=== PATIENT | female | born 1990 | race Caucasian/White ===

== ENCOUNTER 2017-05-24 09:56 | Emergency (ER) | payer OTHER ==
[~2017-05-24] VITALS: Ht 165.1 cm; Wt 104.1 kg
[~2017-05-24 09:56] MED LIST: HYDR-3498 PO; NAPR-260 PO; TIZA2CAP6 PO
[2017-05-24 09:58] VITALS: Ht 165.1 cm; Wt 104.1 kg
[2017-05-24] MEDS ORDERED: ACETAMINOPHEN 325 MG TAB PO ONE (11:00)
[2017-05-24 11:16] LABS: ADD UMIC NO; UR ASCORBIC ACID NEGATIVE (NEGATIVE); UR BACTERIA FEW /HPF (NONE SEEN); UR BILIRUBIN (Dip) NEGATIVE (NEGATIVE); UR BLOOD (Dip) NEGATIVE (NEGATIVE); UR CLARITY SLIGHTLY CLOUDY (CLEAR); UR COLOR YELLOW (YELLOW); UR GLUCOSE (Dip) NEGATIVE (NEGATIVE); UR KETONES (Dip) NEGATIVE (NEGATIVE); UR LEUKOCYTE ESTERASE (Dip) NEGATIVE Leu/ul (NEGATIVE); UR NITRITE (Dip) NEGATIVE (NEGATIVE); UR RBC 1 /HPF (0-5); UR SQUAMOUS EPITHELIAL CELL FEW /HPF (FEW); UR TOTAL PROTEIN (Dip) NEGATIVE (NEGATIVE); UR UROBILINOGEN (Dip) NEGATIVE (NEGATIVE)
[2017-05-24 11:18] LABS: BASOPHILS % 0.5 % (0.0-2.0); EOSINOPHILS # 0.1 10^3/ul (0.0-0.5); EOSINOPHILS % 0.9 % (0.0-7.0); HEMATOCRIT 44.7 % (37.0-47.0); HEMOGLOBIN 14.6 g/dl (12.0-16.0); LYMPHOCYTES # 2.5 10^3/ul (0.8-2.9); LYMPHOCYTES % 30.6 % (15.0-51.0); MEAN CORPUSCULAR HEMOGLOBIN 28.3 pg (29.0-33.0); MEAN CORPUSCULAR HGB CONC 32.7 g/dl (32.0-37.0); MEAN CORPUSCULAR VOLUME 86.8 fl (82.0-101.0); MEAN PLATELET VOLUME 11.7 fl (7.4-10.4); MONOCYTE # 0.4 10^3/ul (0.3-0.9); MONOCYTES % 4.4 % (0.0-11.0); NEUTROPHIL # 5.2 10^3/ul (1.6-7.5); NEUTROPHILS % 63.4 % (39.0-77.0); PLATELET COUNT 296 10^3/UL (140-415); RED BLOOD COUNT 5.15 10^6/ul (4.20-5.40); RED CELL DISTRIBUTION WIDTH 13.2 % (11.5-14.5); WHITE BLOOD COUNT 8.2 10^3/ul (4.8-10.8)
[2017-05-24 11:36] LABS: ALBUMIN 4.3 g/dl (3.3-4.9); ALBUMIN/GLOBULIN RATIO 1.22; BILIRUBIN,INDIRECT 0.3 mg/dl (0-1.1); BILIRUBIN,TOTAL 0.3 mg/dl (0.2-1.3); CALCIUM 9.5 mg/dl (8.4-10.2); CREATININE 0.73 mg/dl (0.44-1.00); POTASSIUM 4.1 mmol/L (3.5-5.1); TOTAL PROTEIN 7.8 g/dl (6.1-8.1)
--- NOTE | 2017-05-24 12:06 | RADRPT ---
PROCEDURE: Pelvic ultrasound. CLINICAL INDICATION: Pelvic pain TECHNIQUE: Calderon scale, color doppler, spectral doppler ultrasound of the pelvis was performed with transabdominal and transvaginal transducers. COMPARISON: US PELVIS 02/05/2014 FINDINGS: Uterus: Position: Anteverted. Normal myometrial echogenicity. Normal appearance of the endometrium. Ovaries: Normal appearing right ovary. Normal appearing left ovary. No adnexal masses. Blood flows present bilaterally. A few normal appearing sub-centimeter follicles are seen in each ovary. Free fluid: Trace amount. Measurements: Endometrium (cm): 0.8 Uterus (cm): 6.8 x 3.4 x 4.3 Right ovary (cm): 3.2 x 1.7 x 2.3 Left ovary (cm): 3.7 x 2.3 x 2.3 IMPRESSION: Trace amount of free fluid in the pelvis, otherwise normal examination. Resolution of previously seen hemorrhagic cyst. RPTAT: AADD .Kip Jerry MD, MD Date Time Electronically viewed and signed by .Kip Jerry MD, on 05/24/2017 12:06 .B/
[2017-05-24] MEDS ORDERED: IBUP800T25 PO (13:23)
--- NOTE | 2017-05-24 14:55 | ERD ---
ER Documentation Chief Complaint Chief Complaint rt side lower back pain radiating to rt leg , vaginal discharge HPI 26-year-old female complaining of right groin pain on and off for 3 days. The pain has become constant since last night. He is good for pain as pressure and cramping like. Pain is worse when she is sitting, better when she lays down. Patient states that her LMP was 04/11/2017, she has a clear vaginal discharge. She had urine test done at clinic yesterday, was negative. Denies dysuria. Denies fever or chills. Denies injury. Patient has bowel movement regularly daily, last BM was this morning, which was normal. ROS All systems reviewed and are negative except as per history of present illness. Medications Home Meds Active Scripts Ibuprofen* (Motrin*) 800 Mg Tab, 800 MG PO Q6H Y for PAIN AND OR ELEVATED TEMP, #30 TAB Prov:CAIO BENSON MEDICAL INVESTIGATOR 05/24/17 Naproxen* (Naprosyn*) 500 Mg Tablet, 500 MG PO BID Y for PAIN AND/OR INFLAMMATION, #30 TAB Prov:GUILLAUME PORTILLO PA-C 09/10/15 Tizanidine Hcl* (Tizanidine Hcl*) 2 Mg Capsule, 2 MG PO Q6H Y for spasm, #20 CAP Prov:GUILLAUME PORTILLO PA-C 09/10/15 Hydrocodone Bit-Acetaminophen* ([place]*) 5-325 Mg Tab, 1 TAB PO Q6 Y for PAIN, # 12 TAB Prov:GUILLAUME PORTILLO PA-C 09/10/15 Allergies Allergies: Coded Allergies: No Known Allergy (Unverified , 02/05/14) PMhx/Soc History of Surgery: Yes (TONSILLECTOMY) Hx Neurological Disorder: Yes (MIGRAINE HEADACHES) Hx Respiratory Disorders: Yes (ASTHMA) Hx Cardiac Disorders: No Hx Psychiatric Problems: No Hx Miscellaneous Medical Probl: No Hx Alcohol Use: Yes (SOCIAL) Hx Substance Use: No Hx Tobacco Use: No Physical Exam Vitals Vital Signs Date Time Temp Pulse Resp B/P Pulse Ox O2 Delivery O2 Flow Rate FiO2 05/24/17 09:58 99.4 68 18 125/71 100 Physical Exam General: Well-developed, well-nourished, conscious and coherent, in no distress Skin: Warm and dry without rash, good texture and turgor Head: Normocephalic without evidence of trauma Eyes: Sclera and conjunctivae normal; pupils equal, round, and reactive to light; extraocular movements are intact Chest: Normal AP diameter. Good expansion without retractions. Nontender. Lungs are clear to auscultate bilaterally with good tidal volume Heart: Regular rate and rhythm. No murmur, rub, or gallops heard Abdomen: Soft and nontender without masses, guarding, or rebound. Bowel sounds are active. No hepatosplenomegaly Back: Without spinal or CVA tenderness Pelvis: Nontender to palpation and stable to compression. Right groin tender to palpation over the pubic symphysis on the right, no masses, no inguinal nodes. Extremities: Full range of motion. Good strength bilaterally. No clubbing, cyanosis, or edema. Peripheral pulses are intact. Sensation intact Neuro: Alert and oriented 4, GCS 15. Cranial nerves grossly intact. Motor and sensory exams nonfocal. Moves all extremities. Speech clear. Gait normal Result Diagram: 05/24/17 1052 05/24/17 1052 Results 24 hrs Laboratory Tests Test 05/24/17 10:52 White Blood Count 8.210^3/ul Red Blood Count 5.1510^6/ul Hemoglobin 14.6g/dl Hematocrit 44.7% Mean Corpuscular Volume 86.8fl Mean Corpuscular Hemoglobin 28.3pg Mean Corpuscular Hemoglobin Concent 32.7g/dl Red Cell Distribution Width 13.2% Platelet Count 33064^3/UL Mean Platelet Volume 11.7fl Neutrophils % 63.4% Lymphocytes % 30.6% Monocytes % 4.4% Eosinophils % 0.9% Basophils % 0.5% Nucleated Red Blood Cells % 0.0/100WBC Neutrophils # 5.210^3/ul Lymphocytes # 2.510^3/ul Monocytes # 0.410^3/ul Eosinophils # 0.110^3/ul Basophils # 0.010^3/ul Nucleated Red Blood Cells # 0.010^3/ul Urine Color YELLOW Urine Clarity SLIGHTLY CLOUDY Urine pH 6.0 Urine Specific [place] 1.020 Urine Ketones NEGATIVEmg/dL Urine Nitrite NEGATIVEmg/dL Urine Bilirubin NEGATIVEmg/dL Urine Urobilinogen NEGATIVEmg/dL Urine Leukocyte Esterase NEGATIVELeu/ul Urine Microscopic RBC 1/HPF Urine Microscopic WBC 1/HPF Urine Squamous Epithelial Cells FEW/HPF Urine Bacteria FEW/HPF Urine Hemoglobin NEGATIVEmg/dL Urine Glucose NEGATIVEmg/dL Urine Total Protein NEGATIVEmg/dl Sodium Level 141mmol/L Potassium Level 4.1mmol/L Chloride Level 104mmol/L Carbon Dioxide Level 27mmol/L Anion Gap 14 Blood Urea Nitrogen 14mg/dl Creatinine 0.73mg/dl Glucose Level 93mg/dl Calcium Level 9.5mg/dl Total Bilirubin 0.3mg/dl Direct Bilirubin 0.00mg/dl Indirect Bilirubin 0.3mg/dl Aspartate Amino Transf (AST/SGOT) 21IU/L Alanine Aminotransferase (ALT/SGPT) 37IU/L Alkaline Phosphatase 85IU/L Total Protein 7.8g/dl Albumin 4.3g/dl Globulin 3.50g/dl Albumin/Globulin Ratio 1.22 Lipase 51U/L Beta HCG, Quantitative < 2.4mIU/ml Current Medications Medications (Trade) Dose Ordered Sig/Liz Route PRN Reason Start Time Stop Time Status Last Admin Dose Admin Acetaminophen (Tylenol Tab) 650 mg ONCE ONCE PO 05/24/17 11:00 05/24/17 11:01 DC 05/24/17 10:49 PROCEDURE: Pelvic ultrasound. CLINICAL INDICATION: Pelvic pain TECHNIQUE: Calderon scale, color doppler, spectral doppler ultrasound of the pelvis was performed with transabdominal and transvaginal transducers. COMPARISON: US PELVIS 02/05/2014 FINDINGS: Uterus: Position: Anteverted. Normal myometrial echogenicity. Normal appearance of the endometrium. Ovaries: Normal appearing right ovary. Normal appearing left ovary. No adnexal masses. Blood flows present bilaterally. A few normal appearing sub-centimeter follicles are seen in each ovary. Free fluid: Trace amount. Measurements: Endometrium (cm): 0.8 Uterus (cm): 6.8 x 3.4 x 4.3 Right ovary (cm): 3.2 x 1.7 x 2.3 Left ovary (cm): 3.7 x 2.3 x 2.3 IMPRESSION: Trace amount of free fluid in the pelvis, otherwise normal examination. Resolution of previously seen hemorrhagic cyst. RPTAT: AADD .Kip Jerry MD, Date Time Electronically viewed and signed by .Kip Jerry MD, MD on 05/24/2017 12:06 .B/ CC: CAIO BENSON. MEDICAL INVESTIGATOR Procedures/MDM Well-appearing 26-year-old female presented ED with right groin pain 3 days. CBC, CMP, lipase, and UA are unremarkable. Beta hCG quant is less than 2.4, patient is not . Pelvic ultrasound was also obtained, which is also unremarkable. I doubt ectopic , ruptured ovarian cyst, ovarian torsion. I doubt inguinal hernia. I think likely patient has sustained a strain on her right groin. Patient was given Tylenol in the ED for pain. Patient appears well, stable for discharge and outpatient management. Medical decision making shared with patient and family. Education provided to patient and family. Patient and family expressed understanding of the plan. Medications on discharge: Ibuprofen. Follow-up: Primary care provider in 2-3 days or return to ED if worse. Disclaimer: Inadvertent spelling and grammatical errors are likely due to EHR/ dictation software use and do not reflect on the overall quality of patient care. Also, please note that the electronic time recorded on this note does not necessarily reflect the actual time of the patient encounter. Departure Diagnosis: Primary Impression: Right groin pain Condition: Stable Patient Instructions: What Is a Hernia?, Groin Strain Additional Instructions: Call your primary care doctor TOMORROW for an appointment during the next 2-3 days.See the doctor sooner or return here if your condition worsens before your appointment time. CAIO BENSON NP May 24, 2017 14:55
== END 2017-05-24 13:36 | disposition home or self-care (01) ==
LOC: FTE 09:56
DX: R10.31 Right lower quadrant pain (principal); J45.909 Unspecified asthma, uncomplicated; R10.2 Pelvic and perineal pain
CPT/HCPCS: 36415; 76830; 76856; 80053; 81001; 83690; 84702; 85025; Z7502; Z7610; 81003

== ENCOUNTER 2019-01-20 15:40 | Emergency (ER) | payer MEDICAID ==
[~2019-01-20] VITALS: Ht 165.1 cm; Wt 108.0 kg
[~2019-01-20 15:40] MED LIST changes: +ACET500C5 PO; +IBUP800T48 PO; -NAPR-260 PO; +NAPR-985 PO
[2019-01-20 15:47] VITALS: Ht 165.1 cm; Wt 108.0 kg
--- NOTE | 2019-01-20 18:33 | ERD ---
ER Documentation Chief Complaint Chief Complaint right facial abscess x 1 day with pain radiates to head HPI 28-year-old female who is 22 weeks is presenting to ED for a lesion on the right side of her cheek. Patient states is gotten worse over the last day. Patient states that this is happened before she has had this on and off for over a year. Patient states that she was seen at a aerospace products sales engineer little over a year ago and they did a steroid injection in it which resolved the issue. Patient states the pain is a 6 out of 10. Patient denies any ear pain jaw pain blurry vision shortness of breath associated. Patient denies any drainage from the lesion. Patient states it does itch from time to time. Patient rates the discomfort a 6 out of 10. ROS All systems reviewed and are negative except as per history of present illness. Medications Home Meds Active Scripts Acetaminophen* (Tylophen*) 500 Mg Capsule, 1 CAP PO Q6H PRN for PAIN AND OR ELEVATED TEMP, #20 CAP Prov:COMPA ROSADO PA-C 01/20/19 Ibuprofen* (Motrin*) 800 Mg Tab, 800 MG PO Q6H PRN for PAIN AND OR ELEVATED TEMP, #30 TAB Prov:CAIO BENSON CONSTRUCTION PROJECT ADMINISTRATOR 05/24/17 Naproxen* (Naprosyn*) 500 Mg Tablet, 500 MG PO BID PRN for PAIN AND/OR INFLAMMATION, #30 TAB Prov:GUILLAUME PORTILLO PA-C 09/10/15 Tizanidine Hcl* (Tizanidine Hcl*) 2 Mg Capsule, 2 MG PO Q6H PRN for spasm, #20 C AP Prov:GUILLAUME PORTILLO PA-C 09/10/15 Hydrocodone Bit-Acetaminophen* ([place]*) 5-325 Mg Tab, 1 TAB PO Q6 PRN for PAIN, #12 TAB Prov:GUILLAUME PORTILLO PA-C 09/10/15 Allergies Allergies: Coded Allergies: No Known Allergy (Unverified , 02/05/14) PMhx/Soc History of Surgery: Yes (TONSILLECTOMY) Hx Neurological Disorder: Yes (MIGRAINE HEADACHES) Hx Respiratory Disorders: Yes (ASTHMA) Hx Cardiac Disorders: No Hx Psychiatric Problems: No Hx Miscellaneous Medical Probl: No Hx Alcohol Use: Yes (SOCIAL) Hx Substance Use: No Hx Tobacco Use: No Smoking Status: Never smoker FmHx Family History: No diabetes, No coronary disease, No other Physical Exam Vitals Vital Signs Date Temp Pulse Resp B/P (MAP) Pulse Ox O2 O2 Flow FiO2 Time Delivery Rate 01/20/19 98.7 82 18 143/77 100 15:47 (99) Physical Exam GENERAL: The patient is well-appearing, well-nourished, in no acute distress HEENT: Atraumatic. Conjunctivae are pink. Pupils equal, round, and reactive to light. There is no scleral icterus. Tympanic membranes clear bilaterally. Oropharynx clear. No nystagmus or photophobia. CHEST: Clear to auscultation bilaterally. There are no rales, wheezes or rhonchi. HEART: Regular rate and rhythm. No murmurs, clicks, rubs or gallops. Skin: 2 cm nodule that is fixed and tender to palpation in the middle right cheek. There is no drainage from the lesion and it feels like a sebaceous cyst. Procedures/MDM ED course: The patient was stable throughout the ED course. The patient and/or family informed of laboratory and diagnostic imaging results throughout the ED course. Medical decision makin-year-old female presented to ED for a nodule on her right cheek. Physical exam revealed a 2 cm fixed nodule with mild pain to palpation. There is no discharge or fluctuant mass noted on examination. Patient states this is happened to her in the past and that she seen a aerospace products sales engineer who injected it with a steroid and a shrink. Patient denies any shortness of breath headache blurred vision or any other symptoms associated with this. Patient is 22 weeks but has no abdominal pain vaginal plane or back pain. Physical exam was most consistent with a sebaceous cyst. At this time I have low suspicion for measles mumps rubella sepsis cellulitis, abscess I advised patient if symptoms worsen she should return to ER immediately I advised the patient that she needs to follow back up with dermatology for treatment. The patient is agreement this treatment and all questions were answered upon discharge Prescription for home: Acetaminophen I have discussed with the patient proper use and common side effects to expert with the medication . I advised the patient/family to speak with the pharmacist dispensing the medication to be advised of any potential drug inter actions with other medication or supplements they may be taking. Discharge: At this time, patient is stable for discharge and outpatient management. I have instructed the patient to follow-up with his\her primary care physician in 1 to 2 days. I have discussed with the patient the possibility of needing to see a specialist for further work-up and imaging studies if symptoms persist. I have instructed the patient to promptly return to the ER for any new or worsening symptoms including increased pain, fever, nausea, vomiting, weakness or LOC. The patient and\or family expressed understanding of and agreement with this plan. All questions were answered. Home care instructions were provided. Disclaimer: Inadvertent spelling and grammatical errors are likely due to EHR\dictation software use and do not reflect on the overall quality of patient care. Also, please note that the electronic time recorded on the note does not necessarily reflect the actual time of the patient encounter. Departure Diagnosis: Primary Impression: Sebaceous cyst Condition: Stable Patient Instructions: Sebaceous Cyst Referrals: [facility] YOU HAVE RECEIVED A MEDICAL SCREENING EXAM AND THE RESULTS INDICATE THAT YOU DO NOT HAVE A CONDITION THAT REQUIRES URGENT TREATMENT IN THE EMERGENCY DEPARTMENT. FURTHER EVALUATION AND TREATMENT OF YOUR CONDITION CAN WAIT UNTIL YOU ARE SEEN IN YOUR DOCTORS OFFICE WITHIN THE NEXT 1-2 DAYS. IT IS YOUR RESPONSIBILITY TO MAKE AN APPOINTMENT FOR FOLOW-UP CARE. IF YOU HAVE A PRIMARY DOCTOR --you should call your primary doctor and schedule an appointment IF YOU DO NOT HAVE A PRIMARY DOCTOR YOU CAN CALL OUR PHYSICIAN REFERRAL HOTLINE AT IF YOU CAN NOT AFFORD TO SEE A PHYSICIAN YOU CAN CHOSE FROM THE FOLLOWING [facility] [address] [facility]. [facility] [address] [facility] [facility] [address] [facility] [facility] [address] [facility] [place] [address] [facility] [facility]. [address] [facility]. [facility] YOU HAVE RECEIVED A MEDICAL SCREENING EXAM AND THE RESULTS INDICATE THAT YOU DO NOT HAVE A CONDITION THAT REQUIRES URGENT TREATMENT IN THE EMERGENCY DEPARTMENT. FURTHER EVALUATION AND TREATMENT OF YOUR CONDITION CAN WAIT UNTIL YOU ARE SEEN IN YOUR DOCTORS OFFICE WITHIN THE NEXT 1-2 DAYS. IT IS YOUR RESPONSIBILITY TO MAKE AN APPOINTMENT FOR FOLOW-UP CARE. IF YOU HAVE A PRIMARY DOCTOR --you should call your primary doctor and schedule and appointment IF YOU DO NOT HAVE A PRIMARY DOCTOR YOU CAN CALL OUR PHYSICIAN REFERRAL HOTLINE AT . IF YOU CAN NOT AFFORD TO SEE A PHYSICIAN YOU CAN CHOSE FROM THE FOLLOWING [facility] INSTITUTIONS: [facility] [address] [place] [address] [facility] [address] [place] [address] [facility] [address] [place] [address] [employer]ALITY MANAGER [place] [address] [facility] [address] [place] [address] OFFICE FAX [facility] [address] [place] [address] [address] YIP [address]AND [address] [place] [address] [address] [facility] [address] [facility], [address] [address] [address] [address] [place] [address] [facility] [address] [place] [address] [address] [facility] [address] - [address], [facility] [address] [address] [address] [facility]. [address], [facility] [address] [address] [address] [place] [address] Additional Instructions: SPECIALIST: YOU HAVE A MEDICAL CONDITION WHICH REQUIRES YOU TO SEE A SPECIALIST WITHIN THE NEXT 1-2 DAYS. PLEASE FOLLOW UP WITH YOUR PRIMARY PHYSICIAN FOR REFFERAL.IF YOU DO NOT HAVE A PRIMARY CARE PHYSICIAN AND/OR YOU CAN NOT AFFORD TO SEE A PHYSICIAN THE FOLLOWING RESOURCES HAVE BEEN SUPPLIED TO YOU. IT IS YOUR RESPONSIBILITY TO BE SEEN BY THE SPECIALIST COMPA ROSADO PA-C Jan 20, 2019 18:33
== END 2019-01-20 16:57 | disposition home or self-care (01) ==
LOC: FTE 15:40
DX: O99.712 Diseases of the skin and subcutaneous tissue complicating pregnancy, second trimester (principal); L72.3 Sebaceous cyst; Z3A.22 22 weeks gestation of pregnancy
CPT/HCPCS: 99282